=== PATIENT | female | born 1980 | race Caucasian/White ===

== ENCOUNTER → 2021-09-22 | Outpatient (CLI) | payer OTHER ==
--- NOTE | 2021-09-22 17:06 | KCIC ---
STUDY: MRI of the left knee without contrast INDICATION: Chronic pain. COMPARISON: None. TECHNIQUE: Multiplanar MR imaging of the left knee performed without the use of intravenous or intra- articular contrast. 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 Mild free edge and articular si ded fraying of the mid medial meniscal body in addition to mild myxoid degeneration at the more poste rior aspect of the medial meniscus without a focal tear. The medial meniscus posterior horn is smalle r in size than the anterior horn but maintains a triangular morphology and there is no evidence for a displaced meniscal tear. Cruciate ligaments: Intact. Collateral ligaments: Intact. Tendons: No tendon tear or advanced tendinosis. 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 Lateral compartment: High-grade/near full-thickness chondrosis at the inner aspect of the weightbeari ng tibial plateau, image 11 series 8. Less pronounced partial thickness chondrosis at additional loca tions. Medial compartment: Partial thickness chondrosis of the weightbearing medial femoral condyle and tibi al plateau best seen along its periphery. Higher grade chondrosis of the far posterior nonweightbeari ng medial femoral condyle. Bones: Mild lateral patellar tilt and subluxation. Increased TT-TG distance of 19 mm. Small tricompar tmental osteophytes. Degenerative subchondral edema/cystic change primarily involving the patella. Mi ld heterogeneity of marrow signal favored physiologic. Miscellaneous: Small amount of joint fluid. No large ganglion cyst. Scattered soft tissue edema mainl y at the anterior knee. IMPRESSION: 1. Degenerative heterogeneity of portions of the medial meniscus without a well delineated tear. Int act lateral meniscus which exhibits an incomplete discoid morphology. The cruciate and collateral lig aments are intact. 2. 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 3. Mild lateral patellar tilt and subluxation with a TT-TG distance of 19 mm. Electronically signed by: MAGUI MACHADO MD (09/22/2021 5:03 PM) [id number]
== END ==
LOC: KCIC MRI 10:07
PROVIDERS: ATTEND Family Medicine Sports Medicine
DX: S83.012A Lateral subluxation of left patella, initial encounter (principal); M23.301 Other meniscus derangements, unspecified lateral meniscus, left knee; M17.5 Other unilateral secondary osteoarthritis of knee; M25.762 Osteophyte, left knee; M25.462 Effusion, left knee; X58.XXXA Exposure to other specified factors, initial encounter; Y93.89 Activity, other specified; Y92.89 Other specified places as the place of occurrence of the external cause; Y99.8 Other external cause status
CPT/HCPCS: 73721

== ENCOUNTER → 2021-11-20 | Outpatient (CLI) | payer OTHER ==
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
== END ==
LOC: KCIC MRI 09:07
PROVIDERS: ATTEND Orthopaedic Surgery Sports Medicine
DX: M22.42 Chondromalacia patellae, left knee (principal); M21.862 Other specified acquired deformities of left lower leg; M79.4 Hypertrophy of (infrapatellar) fat pad; M25.462 Effusion, left knee; M17.0 Bilateral primary osteoarthritis of knee
CPT/HCPCS: 73721